=== PATIENT | female | born 1960 | race Two or more races ===

== ENCOUNTER → 2021-08-30 12:48 | Outpatient (BNVA) | payer MEDICAID, SELFPAY | PROVIDERS: PCP Internal Medicine; Visit Provider Nurse Practitioner Family | DX: G47.9 Sleep disorder, unspecified (principal); R25.1 Tremor, unspecified | CPT/HCPCS: 99212 ==

== ENCOUNTER → 2022-02-13 13:17 | Outpatient (BNVA) | payer MEDICAID, SELFPAY | PROVIDERS: PCP Internal Medicine; Visit Provider Nurse Practitioner Family | DX: R25.1 Tremor, unspecified (principal); R56.9 Unspecified convulsions; G47.33 Obstructive sleep apnea (adult) (pediatric); H93.19 Tinnitus, unspecified ear; Z79.899 Other long term (current) drug therapy | CPT/HCPCS: 99212 ==

== ENCOUNTER → 2022-08-14 12:53 | Outpatient (BNVA) | payer MEDICAID, SELFPAY | PROVIDERS: PCP Internal Medicine; Visit Provider Nurse Practitioner Family | DX: G47.33 Obstructive sleep apnea (adult) (pediatric) (principal); R25.1 Tremor, unspecified; R56.9 Unspecified convulsions; Z99.89 Dependence on other enabling machines and devices | CPT/HCPCS: 99212 ==

== ENCOUNTER 2023-02-12 12:47 | Outpatient (AMB) | payer OTHER, SELFPAY ==
[2023-02-12 12:49] VITALS: BP 122/80; PULSE 72; O2SAT 97; BMI 31.2
--- NOTE | 2023-02-12 12:49 | MHC.OFFVIS ---
Intake Vital Signs 02/12/23 12:49 Height 5 ft 4 in Weight 182 lb BMI 31.2 BP 122/80 Blood Pressure Location Rt brachial Position Sitting Pulse 72 Pulse Source Pulse Oximeter Pulse Oximetry (%) 97 Oxygen Delivery Method Room Air Intake Visit Reasons: 6m follow up SYL - LVM Intake Note: Patient presents for 6 month follow up SYL. patient states I'm doing better better more energized. Allergies No Known Allergies Allergy (Verified 02/12/23 12:53) Medication List - Last Reconciled 02/12/23 by MICHELA Auguste acetaminophen 1,000 mg PO TID albuterol sulfate 90 mcg/actuation (ProAir HFA) 2 puffs inhalation Q4H PRN cholecalciferol (vitamin D3) (Vitamin D3) 25 mcg PO DAILY 30 days fluticasone propionate 0.05% appl topical BID ketotifen fumarate 0.025%(0.035%) 1 drp ophthalmic (eye) Q12H loratadine 10 mg PO DAILY omeprazole 20 mg PO DAILY ropinirole 0.25 mg PO BID HPI HPI Comments History of Present Illness Details 62-yr-old female presents for f/u visit, accompanied by her dtr Pt denies any significant interval medical changes. Pt reports her leg movements are better. Has not been exercising- just has not gotten back dionne the routine of exercising. Seay shave some knee pain. She is using her CPAP nightly with good effect- feels more rested, however she does still have some nocturia. Her PAP compliance report shows CPAP 7 cmH2O, average use 7 hrs 27 min, 100% usgae > 4 hrs, residual AHI 1.1/hr. No recent nocturnal tongue biting episodes. She has bothersome left ear tinnitus and left ear fullness- more so wakes up with this in the morning. States it is not a headache, but is very bothersome. She has not had audiology eval. She does have Loratadine at home- but has not been using. Headaches have been much better since starting PAP. She has a prescription acute tx at home- does not need to zack- does not recall the name. [facility] Medical History delivery delivered Unspecified convulsions Family History Paternal Grandfather Lung cancer Father Cancer Social History Alcohol intake: never Patient Tobacco Use Status: Never used Tobacco Review of Systems Const All systems reviewed & are unremarkable except as noted in HPI and below Physical Exam Vital Signs: Last Vital Signs Pulse 72 02/12/23 12:49 BP 122/80 02/12/23 12:49 Pulse Ox 97 02/12/23 12:49 Oxygen Delivery Method Room Air 02/12/23 12:49 BMI result Body Mass Index 31.2 Const General: cooperative and no acute distress Orientation/consciousness: patient oriented x3 HEENT Head: Yes normocephalic Ears: TM normal on the right and TM abnormal with fluid behind the TM on the left and diffuse Resp Effort & Inspection: normal respiratory effort and able to speak in complete sentences Neuro Other: BLE tapping at rest. Stands slowly using arms, BLE shaky, but steady gait. General: patient oriented x3 and CN's II-XI intact bilaterally Cognition (Neuro): normal cognition Motor exam (neuro): 5/5 motor strength present throughout Psych Appearance: grossly normal Mental Status: mental status grossly normal Affect: normal affect Attitude: cooperative Thought process: Normal thought process present Thought content: Normal thought content present Insight: Good insight present (Psych) Assessment & Plan Assessment & Plan (1) Tremor: Comment: BLE- worse in left. Gait diffciulties. ? severe restless leg syndrome, ? functional. Code(s): R25.1 - Tremor, unspecified (2) Tinnitus: Code(s): H93.19 - Tinnitus, unspecified ear (3) SYL (obstructive sleep apnea): Comment: severe Code(s): G47.33 - Obstructive sleep apnea (adult) (pediatric) Plan For SYL: Continue CPAP 7 cmH2O, as pt is experiencing good clinical effect May use Melatonin prn. ? For headaches: Monitor. ? For nocturnal tongue biting: Monitor Has had once tongue biting episode on CPAP, but none recently. EEG- borderline d/t relatively frequent frontal rhythmic delta complexes, which were difficult to distinguish from blink artifact. Likely benign blink artifact, no concerns for metabolic dysfunction at this time. ? For tinnitus: Will refer again to ENT. Try taking her Loratadine 10mg qhs ? For tremors: Continue Ropinirole. Hold iron, she may continue vitamin C. Orders: Referrals Ear/Nose/Throat Referral H93.19 - Tinnitus, unspecified ear, H93.8X2 - Other specified disorders of left ear Medications: Changed From cholecalciferol (vitamin D3) (Vitamin D3) 25 mcg PO DAILY To cholecalciferol (vitamin D3) (Vitamin D3) 25 mcg PO DAILY 30 days 30 tabs 6RF Coding Level of Care Code Est Pt Level 4 (70927) Diagnoses Tremor R25.1 Tinnitus H93.19 SYL (obstructive sleep apnea) G47.33
== END 2023-02-12 13:36 | disposition home or self-care (01) ==
PROVIDERS: Visit Provider Nurse Practitioner Family
DX: R25.1 Tremor, unspecified (principal); H93.19 Tinnitus, unspecified ear; G47.33 Obstructive sleep apnea (adult) (pediatric)
CPT/HCPCS: 99214

== ENCOUNTER → 2023-02-12 12:47 | Outpatient (BNVA) | payer OTHER, SELFPAY | PROVIDERS: Visit Provider Nurse Practitioner Family | DX: R25.1 Tremor, unspecified (principal); H93.19 Tinnitus, unspecified ear; G47.33 Obstructive sleep apnea (adult) (pediatric); Z79.899 Other long term (current) drug therapy; Z99.89 Dependence on other enabling machines and devices | CPT/HCPCS: 99212 ==

== ENCOUNTER 2023-11-05 13:49 | Outpatient (AMB) | payer OTHER, SELFPAY ==
--- NOTE | 2023-11-05 14:03 | MHC.OFFVIS ---
Vital Signs 11/05/23 14:05 Height 5 ft 4 in Weight 187 lb BMI 32.1 BP 110/78 Blood Pressure Location Rt brachial Position Sitting Pulse 80 Pulse Source Pulse Oximeter Pulse Oximetry (%) 95 Oxygen Delivery Method Room Air Intake Visit Reasons: 6m f/u SYL-CONF Intake Note: Patient presents for SYL tremors have stopped and patient stopped medication. Allergies No Known Allergies Allergy (Verified 11/05/23 14:06) Medication List - Last Reconciled 11/05/23 by MICHELA Auguste acetaminophen 1,000 mg PO TID albuterol sulfate 90 mcg/actuation (ProAir HFA) 2 puffs inhalation Q4H PRN cholecalciferol (vitamin D3) (Vitamin D3) 25 mcg PO DAILY 30 days fluticasone propionate 0.05% appl topical BID ketotifen fumarate 0.025%(0.035%) 1 drp ophthalmic (eye) Q12H loratadine 10 mg PO DAILY omeprazole 20 mg PO DAILY ropinirole 0.25 mg PO BID HPI Comments Details: 63-yr-old female presents for f/u visit. Pt states she has been having a new headache over the last several months. The headache is left parietal internal numbness and pain- a strange sensation- can move down into occipital region. She does have tinnitus. She denies photophobia, phonophobia, N/V w/ these headaches. Denies known triggers. The headache occurs frequently. Has Tylenol- helps some. PCP has ordered a brain MRI w/o- scheduled for Thu. This is not like her typical migraine which is a/w left eye pain and photophobia. She does have bruxism which is bothersome- does not have a mouth guard. Denies neck pain. Not sleeping well even w/ CPAP. She stopped Ropinirole about a month ago as her tremor has resolved. Denies any interval convulsions. Compliance Report Usage 10/06/2023 - 11/04/2023 Usage days 30/30 days (100%) Usage days >= 4 hours 30 days (100%) Usage days < 4 hours 0 days (0%) Average usage (days used) 7 hours 18 minutes AirSense 11 AutoSet Serial number [id number] Mode CPAP Set pressure 7 cmH2O EPR Fulltime EPR level 2 Residual AHI: 0.6/hr PFS Medical History delivery delivered Unspecified convulsions Family History Paternal Grandfather Lung cancer Father Cancer Social History Alcohol intake: never Patient Tobacco Use Status: Never used Tobacco Physical Exam Vital Signs: Last Vital Signs Pulse 80 11/05/23 14:05 BP 110/78 11/05/23 14:05 Pulse Ox 95 11/05/23 14:05 Oxygen Delivery Method Room Air 11/05/23 14:05 BMI result Body Mass Index 32.1 Const General: cooperative and no acute distress Orientation/consciousness: patient oriented x3 Resp Effort & Inspection: normal respiratory effort and able to speak in complete sentences Neuro Other: No palpable scalp tenderness. Bilateral posterior cervical tightness. Limited cervical ROM. Negative Spurling. Lower frontal tooth wearing. No tremor observed. Stands easily today w/o tremor, steady gait w/o device. General: patient oriented x3 Cranial nerves: Yes CN's II-XII intact bilaterally Cognition (Neuro): normal cognition Psych Appearance: grossly normal Mental Status: mental status grossly normal Speech and movement: Normal speech and movement present Affect: normal affect Attitude: cooperative Assessment & Plan Assessment & Plan (1) Left-sided headache: Code(s): R51.9 - Headache, unspecified Category: Medical (2) Bruxism: Code(s): F45.8 - Other somatoform disorders Category: Medical (3) Cervical paraspinal muscle spasm: Code(s): M62.838 - Other muscle spasm Category: Medical (4) SYL (obstructive sleep apnea): Comment: severe Code(s): G47.33 - Obstructive sleep apnea (adult) (pediatric) Category: Medical (5) Unspecified convulsions: Comment: Episode in Mar 2017 & May 2018 & Spring 2019- stephen, LOC. ? pseudoseizure, ? convulsion, cardiac work-up initially benign, EEG- normal-low amplitude. Chronic episodes of nocturnal tongue biting. F/u 5 day video EEG- NL. Code(s): R56.9 - Unspecified convulsions Category: Medical Plan For new left sided headaches: Brain MRI as ordered by PCP- will request report next week once completed. Trial OTC mouth guard PT eval & tx for dry needling, myofascial release, posture tx- order given to pt. Resume Magnesium- pt has OTC supplement at home- goal 400-500mg qhs. For SYL: Continue CPAP 7 cmH2O, as pt is having good clinical reduction in AHI. May use Melatonin prn. ? For nocturnal tongue biting: Monitor Has had once tongue biting episode on CPAP, but none recently. EEG- borderline d/t relatively frequent frontal rhythmic delta complexes, which were difficult to distinguish from blink artifact. Likely benign blink artifact, no concerns for metabolic dysfunction at this time. ? For tinnitus: ? status of ENT referal. Loratadine 10mg qhs ? For tremors: May hold Ropinirole as tremor and gait significantly improved. Previously stopped iron. May continue vitamin C. Orders: Orders PT Evaluation and Treatment Today F45.8 - Other somatoform disorders, M62.838 - Other muscle spasm, R51.9 - Headache, unspecified Coding Level of Care Code Est Pt Level 4 (35379) Diagnoses Left-sided headache R51.9 Bruxism F45.8 Cervical paraspinal muscle spasm M62.838 SYL (obstructive sleep apnea) G47.33 Unspecified convulsions R56.9
[2023-11-05 14:05] VITALS: BP 110/78; PULSE 80; O2SAT 95; BMI 32.1
== END 2023-11-05 15:00 | disposition home or self-care (01) ==
PROVIDERS: PCP Internal Medicine; Visit Provider Nurse Practitioner Family
DX: R51.9 Headache, unspecified (principal); F45.8 Other somatoform disorders; M62.838 Other muscle spasm; G47.33 Obstructive sleep apnea (adult) (pediatric); R56.9 Unspecified convulsions
CPT/HCPCS: 99214

== ENCOUNTER → 2023-11-05 13:49 | Outpatient (BNVA) | payer OTHER, SELFPAY | PROVIDERS: PCP Internal Medicine; Visit Provider Nurse Practitioner Family | DX: G47.33 Obstructive sleep apnea (adult) (pediatric) (principal); M62.838 Other muscle spasm; R56.9 Unspecified convulsions; F45.8 Other somatoform disorders; R51.9 Headache, unspecified | CPT/HCPCS: 99212 ==

== ENCOUNTER 2025-04-19 14:29 | Outpatient (AMB) | payer OTHER, SELFPAY ==
[2025-04-19 15:00] VITALS: BP 118/78; PULSE 71; O2SAT 97; BMI 32.4
--- NOTE | 2025-04-19 15:00 | MHC.OFFVIS ---
Vital Signs 04/19/25 15:00 Height 5 ft 4 in Weight 189 lb BMI 32.4 BP 118/78 Blood Pressure Location Lt brachial Position Standing Pulse 71 Pulse Source Pulse Oximeter Pulse Oximetry (%) 97 Oxygen Delivery Method Room Air Intake Visit Reasons: 7 month F/U Intake Note: Patient presents for SYL tremors have stopped and patient stopped medication. Stereotype Finisher Required: No Accompanied by: Daughter Allergies No Known Allergies Allergy (Verified 04/19/25 15:04) Medication List - Last Reconciled 04/19/25 by MICHELA Auguste acetaminophen 1,000 mg PO TID albuterol sulfate 90 mcg/actuation (ProAir HFA) 2 puffs inhalation Q4H PRN cholecalciferol (vitamin D3) (Vitamin D3) 25 mcg PO DAILY 30 days fluticasone propionate 0.05% appl topical BID ketotifen fumarate 0.025%(0.035%) 1 drp ophthalmic (eye) Q12H loratadine 10 mg PO DAILY omeprazole 20 mg PO DAILY ropinirole 0.25 mg PO BID HPI Comments Details: 04/19/2025, HPI: 64-yr-old female presents for follow-up of tremor, convulsions, headache and sleep difficulties. Patient is accompanied by her daughter. The patient denies any significant interval medical changes. She reports overall she feels pretty good. Patient reports that the previously reported headache has resolved. She states she does not sleep well, however is consistently using her CPAP for almost 8 hours per night. Denies any interval episodes of nocturnal tongue biting. Her 90 day CPAP compliance report shows near 100% use, with a residual AHI under 2. She does continue to see [facility] sleep Medicine as well. She denies any concerns related to her mood. She denies any interval tremor. She continues to walk without a walker without difficulty. She acknowledges that she has not sizing regularly. She denies any interval convulsive activity. 11/05/2023, HPI: Pt states she has been having a new headache over the last several months. The headache is left parietal internal numbness and pain- a strange sensation- can move down into occipital region. She does have tinnitus. She denies photophobia, phonophobia, N/V w/ these headaches. Denies known triggers. The headache occurs frequently. Has Tylenol- helps some. PCP has ordered a brain MRI w/o- scheduled for Thu. This is not like her typical migraine which is a/w left eye pain and photophobia. She does have bruxism which is bothersome- does not have a mouth guard. Denies neck pain. Not sleeping well even w/ CPAP. She stopped Ropinirole about a month ago as her tremor has resolved. Denies any interval convulsions. Compliance Report Usage 10/06/2023 - 11/04/2023 Usage days 30/30 days (100%) Usage days >= 4 hours 30 days (100%) Usage days < 4 hours 0 days (0%) Average usage (days used) 7 hours 18 minutes AirSense 11 AutoSet Serial number [id number] Mode CPAP Set pressure 7 cmH2O EPR Fulltime EPR level 2 Residual AHI: 0.6/hr PFS Medical History delivery delivered Unspecified convulsions Family History Paternal Grandfather Lung cancer Father Cancer Social History Alcohol intake: never Patient Tobacco Use Status: Never used Tobacco Physical Exam Vital Signs: Last Vital Signs Pulse 71 04/19/25 15:00 BP 118/78 04/19/25 15:00 Pulse Ox 97 04/19/25 15:00 Oxygen Delivery Method Room Air 04/19/25 15:00 BMI result Body Mass Index 32.4 Const General: cooperative and no acute distress Orientation/consciousness: patient oriented x3 Resp Effort & Inspection: normal respiratory effort and able to speak in complete sentences Neuro Other: No rest or postural tremor observed. Stands easily today w/o tremor, good stride, steady gait without assistive device. General: patient oriented x3 Cranial nerves: Yes CN's II-XII intact bilaterally Cognition (Neuro): normal cognition Psych Appearance: grossly normal Mental Status: mental status grossly normal Speech and movement: Normal speech and movement present Affect: normal affect Attitude: cooperative Results Reviewed Results Reviewed: Assessment & Plan Assessment & Plan (1) Left-sided headache: Code(s): R51.9 - Headache, unspecified Category: Medical (2) Bruxism: Code(s): F45.8 - Other somatoform disorders Category: Medical (3) Cervical paraspinal muscle spasm: Code(s): M62.838 - Other muscle spasm Category: Medical (4) SYL (obstructive sleep apnea): Comment: severe Code(s): G47.33 - Obstructive sleep apnea (adult) (pediatric) Category: Medical (5) Unspecified convulsions: Comment: Episode in Mar 2017 & May 2018 & Spring 2019- shaky, LOC. ? pseudoseizure, ? convulsion, cardiac work-up initially benign, EEG- normal-low amplitude. Chronic episodes of nocturnal tongue biting. F/u 5 day video EEG- NL. Code(s): R56.9 - Unspecified convulsions Category: Medical Qualifiers: Convulsion type: unspecified Qualified Code(s): R56.9 - Unspecified convulsions Plan For previous new onset left sided headaches: October 2023 Brain MRI w/o: Mild chronic microangiopathic changes, otherwise unremarkable. Headache has resolved, however if it reoccurs: Trial OTC mouth guard Refer for PT eval & tx for dry needling, myofascial release, posture tx- order given to pt. Magnesium- pt has OTC supplement at home- goal 400-500mg qhs. For SYL: Continue CPAP 7 cmH2O, as pt is having good clinical reduction in AHI. May use Melatonin prn. Follow-up with [facility] sleep Medicine as scheduled ? For nocturnal tongue biting: Monitor Has had once tongue biting episode on CPAP, however has not had an episode in greater than a year. EEG- borderline d/t relatively frequent frontal rhythmic delta complexes, which were difficult to distinguish from blink artifact. Likely benign blink artifact, no concerns for metabolic dysfunction at this time. ? For tinnitus: ENT as scheduled Loratadine 10mg qhs ? For tremors: Tremor and gait have significantly improved. Previous trials: Iron with vitamin-C and ropinirole- discontinued when tremor resolved Pt to follow-up in 12 months or sooner prn. Coding Level of Care Code Est Pt Level 3 (56021) Diagnoses Left-sided headache R51.9 Bruxism F45.8 Cervical paraspinal muscle spasm M62.838 SYL (obstructive sleep apnea) G47.33 Convulsions, unspecified convulsion type R56.9 Convulsion type: unspecified
--- OUTSIDE RECORDS SUMMARY | 2025-04-19 18:52 | XMS_ITS | Data Portability ---
Author Organization [place] [facility], Allergy Address [address] [place] [address] Care Team Providers Care Mds Manager Name Role Phone MOJGAN FRANKLIN Referring Provider [phone] Assessment No assessment recorded. Plan of Treatment Reminders Order Date Submit Date Provider Last Modified By Organization Details Last Modified Time Details Appointments None recorded. Lab None recorded. Referral None recorded. Procedures None recorded. Surgeries None recorded. Imaging MRI, brain + internal auditory canal, w/wo contrast - MRI, BRAIN + INTERNAL AUDITORY CANAL, W/WO CONTRAST, evaluate for acoustic neuroma given left tinnitus and asymmetric hearing loss 2024 025 [email or web address] [facility] ([facility]), [address], [place], [address], 11:24:02 Medication Orders None recorded. Patient TargetsNo targets recorded. Patient InstructionsNo instructions recorded. Reason for Referral None Reported. Results Created Date Observation Date Name Description Value Unit Range Abnormal Flag Note LastModifiedBy Organization Detail LastModifiedTime 02/09/20 24 audio gram No observ ation record ed. BARCODE Not Available 2023 09:20:45 02/16/20 25 audio gram No observ ation record ed. BARCODE Not Available 2024 15:42:57 03/08/20 25 03/07/2025 MRI, brain + brain stem, w/wo contr ast [facility] Access ion Number : [id number] Moustapha parker Name: Amparo Greenberg ia l Record Number : [id number] Date of : 1960 Date of Exam: 2024 Referr ing Physic reinaldo: Eppste iner, Jeb [facility] [place] [address] [facility] [place] [address] Exam: MR Brain (C-/C+ ) CPT 43091 Room Descri ption: [facility] 3.0T MRI Brain W+W/O Contra st INDICA TION / CLINIC AL QUESTI ON: H93.12 - Tinnit us, left ear, evalua te for acoust ic neurom a given left tinnit us and asymme tric hearin g loss TECHNI QUE: MRI of the brain with attent ion to the improvement intern al audito ry canals was perfor med with and withou t contra st utiliz ing sagitt al T1, axial T2, axial FLAIR, axial 3D T2 CUBE, axial and arteaga l T1, and post-c ontras t axial and arteaga l T1-lexie ghted sequen albino. 8 mL of Elucir em was admini stered intrav enousl y. COMPAR LEANNE: Multip le priors , most recent from 024. FINDIN GS: IAC: There is no mass or abnorm al enhanc ement in the improvement intern al audito ry canals or cerebe llopon estephania angles . Course and calibe r of the 7th and 8th crania l nerves is normal bilate rally. Fluid signal is preser melvin in the inner ear struct ures bilate rally. Brains tem demons trates normal signal . Partia lly empty sella. BRAIN and EXTRA- AXIAL SPACES : No signif icant abnorm ality of the visual ized portio ns of the brain and extra- axial spaces . Mild scatte red subcor tical foci of T2 prolon gation in the suprat entori al white matter . Unchan ged nonenh ancing T2 hypoin tense focus in the right lower fadumo, corres pondin g to the known site of chroni c microh emorrh age. EXTRAC RANIAL SOFT TISSUE S: Visual ized portio ns of the extrac ranial soft tissue s are unrema rkable . BONES: Visual ized marrow signal is preser melvin. IMPRES ALEJO: No retroc ochlea r abnorm ality to explai n the patien t?s sympto ms. Mild scatte red T2/FLA IR hyperi ntense foci in the white matter , nonspe cific but most likely repres enting chroni c small vessel diseas e. I have person ally review ed the images and I agree with this report . WSN: [id number] Orderi ng Physic reinaldo: Jeb Puckett onical ly Signed By: Piper pires [facility] ([facility]) [address] [place], [address], 03/10/2025 08:37:51 Result Notes Documentation Provider Name and Address Organization Details Recorded Time Mri, Brain + Brain Stem, W/wo Contrast : [facility] Accession Number: [id number] Patient Name: Amparo Claudio Date of : 1960 Date of Exam: 03-07-2025 Referring Physician: Jeb Gibbs [facility] [address] [facility] [address] [place] [address] Exam: MR Brain (C-/C+) CPT 14395 Room Description: [facility] 3.0T MRI Brain W+W/O Contrast INDICATION / CLINICAL QUESTION: H93.12 - Tinnitus, left ear, evaluate for acoustic neuroma given left tinnitus and asymmetric hearing loss TECHNIQUE: MRI of the brain with attention to the internal auditory canals was performed with and without contrast utilizing sagittal T1, axial T2, axial FLAIR, axial 3D T2 CUBE, axial and coronal T1, and post-contrast axial and coronal T1-weighted sequences. 8 mL of Elucirem was administered intravenously. COMPARISON: Multiple priors, most recent from 11/09/2023. FINDINGS: IAC: There is no mass or abnormal enhancement in the internal auditory canals or cerebellopontine angles. Course and caliber of the 7th and 8th cranial nerves is normal bilaterally. Fluid signal is preserved in the inner ear structures bilaterally. Brainstem demonstrates normal signal. Partially empty sella. BRAIN and EXTRA-AXIAL SPACES: No significant abnormality of the visualized portions of the brain and extra-axial spaces. Mild scattered subcortical foci of T2 prolongation in the supratentorial white matter. Unchanged nonenhancing T2 hypointense focus in the right lower fadumo, corresponding to the known site of chronic microhemorrhage. EXTRACRANIAL SOFT TISSUES: Visualized portions of the extracranial soft tissues are unremarkable. BONES: Visualized marrow signal is preserved. IMPRESSION: No retrocochlear abnormality to explain the patient?s symptoms. Mild scattered T2/FLAIR hyperintense foci in the white matter, nonspecific but most likely representing chronic small vessel disease. I have personally reviewed the images and I agree with this report. WSN: [id number] Ordering Physician: Jeb Gibbs Electronically Signed By: Piper Barillas [facility] 03/10/2025 08:37:51 Problems Name Problem SNOMED Code Status Onset Date Resolution Date Notes Provider Name and Address Organization Details Recorded Time Sensorineur al hearing loss of bilateral ears 686890039 Active 2023 ALBERT HO, AUD [address] [place] [address],[address], [address], [facility] 4 11:30:48 Tinnitus of left ear 3240182472776 Active 2023 JEB Rodriguez MD [address] [place] [address], [address], [facility] 5 14:18:52 Sensorineur al hearing loss of bilateral ears 259271667 Active 2024 MARIPOSA GUADALUPE, AUD [address], [address], [facility] 13:40:12 Problem Notes None recorded. Procedures Surgical History Date Name Laterality Status Provider Name and Address Organization Details Recorded Time 5 Air & Speech Audio with Tymps - 66488, 13338 & 28947 completed MARIPOSA GUADALUPE, AUD [address] [facility],[address], [address], [facility] 02/15/2025 13:40:01 4 Comp Audio with Tymps & Reflexes - 38635 & 26028 completed ALBERT HO, AUD [address] [facility],[address], [address], [facility] 02/08/2024 11:30:34 Imaging Results None recorded. Procedure Notes None recorded. Medical Equipment None Reported. Allergies No known drug allergies Medications Name Sig Start Date Stop Date Status Note LastModified by Organization Details LastModified Time d-1000 extra strength 25 mcg (1000 ut) tabs active Not Available Not Available Not Available fluticasone propionate 0.05 % topical cream APPLY TO FACE ON FOR 2 WEEKS THEN OFF FOR 2 WEEKS active Not Available Not Available No t Available meloxicam 15 mg tablet TAKE 1 TABLET BY MOUTH EVERY DAY NEEDED FOR PAIN active Not Available Not Available No t Available acetaminoph en 500 mg tablet TAKE 2 TABLETS BY MOUTH 3 TIMES A DAY active Not Available Not Available No t Available ropinirole 0.25 mg tablet TAKE 1 TABLET BY MOUTH TWICE A DAY FOR 30 DAYS 02/15 completed Not Available Not Available Not Available metronidazo le 0.75 % topical cream APPLY A THIN LAYER TO THE FACE 1-2 TIMES DAILY NEEDED FOR FLARES. active Not Available Not Available No t Available docusate sodium 100 mg capsule TAKE 1 CAPSULE BY MOUTH 2 TIMES A DAY NEEDED FOR CONSTIPAT ION active Not Available Not Available No t Available omeprazole 20 mg capsule,del ayed release TAKE 1 CAPSULE BY MOUTH TWICE A DAY active Not Available Not Available No t Available fluticasone propionate 50 mcg/actuati on nasal spray,suspe nsion SPRAY 2 SPRAYS INTO EACH NOSTRIL EVERY DAY active Not Available Not Available No t Available doxycycline hyclate 100 mg tablet TAKE 1 TABLET BY MOUTH TWICE A DAY FOR 10 DAYS 02/07 completed Not Available Not Available Not Available Ventolin HFA 90 mcg/actuati on aerosol inhaler INHALE 2 PUFFS BY MOUTH EVERY 4 HOURS NEEDED FOR WHEEZING active Not Available Not Available No t Available Vitamin D3 25 mcg (1,000 unit) tablet TAKE 1 TABLET BY MOUTH EVERY DAY X 30 DAYS active Not Available Not Available No t Available metronidazo le 1 % topical gel TAKE 1 APPLICATI ON (TOPICAL) DAILY FOR 14 DAYS 02/15 completed Not Available Not Available Not Available levocetiriz ine 5 mg tablet TAKE 1 TABLET BY MOUTH DAILY IN PM NEEDED FOR ITCH active Not Available Not Available No t Available GaviLyte-G 236 gram-22.74 gram-6.74 gram-5.86 gram oral solution TAKE 8 OUNCE BY MOUTH DIRECTED FOLLOW PREP INSTRUCTI ONS GIVEN BY YOUR DOCTOR'S OFFICE 02/15 completed Not Available Not Available Not Available Vitals Date Recorded Body height Body mass index (BMI) Body weight Provider Name and Address Organization Details Last Updated DateTime 02/08/2024 160.02 cm 32.2 kg/m2 83431.81 g Cathleen Maurochner [place] [facility] 02/08/2024 11:42:17 Date Recorded Body height Body mass index (BMI) Body weight Provider Name and Address Organization Details Last Updated DateTime 02/15/2025 160.02 cm 31.9 kg/m2 08049.63 g SADIE JONES [place] [facility] 02/15/2025 13:46:19 Social History None recorded. Functional Status None recorded. Mental Status None recorded. Family History Nothing Reported. Medical History Condition Response Arthritis Y Migraines Y Thyroid Problems Y Asthma Y Gynecological HistoryNo gynecological history recorded. Obstetrics History GPAL:G 0 P 0 0 0 0 Past Encounters Encounter ID Performer Location Encounter Start Date Encounter Closed Date Diagnosis/Indication Diagnosis SNOMED-CT Code Diagnosis ICD10 Code Diagnosis IMO Codes Diagnosis Note [id number] JEB GIBBS MD [facility] [address] [address] 02/08/2024 11:10:32 02/08/2024 12:09:04 Sensorineural hearing loss of bilateral ears 739732811 H90.3 Audiologic al evaluation results: 02/08/2024 Right ear: Normal sloping to a mild sensorineu ral hearing loss with excellent word recognitio n. Left ear: Normal sloping to a mild sensorineu ral hearing loss with excellent word recognitio n. Tympanomet ry: Right Ear:Type A Left Ear:Type A Acoustic Reflex Testing: Signal to theRight Ear(crosse d):Normal Signal to theRight Ear(uncros sed): Normal Signal to theLeft Ear(crosse d):Normal Signal to theLeft Ear(uncros sed):Shilpa l Tinnitus of left ear 600 3246706 106 H93.12 Ear exam was normal. Audiogram was reviewed. We discussed the associatio n between sensorineu ral hearing loss and tinnitus. We discussed masking for tinnitus. Given her slight asymmetry and unilateral tinnitus I discussed the option of an MRI to exclude retrocochl ear pathology. She declined in favor of yearly audiograms . She will return in 1 year with an audio and if the asymmetry widens I will recommend an MRI. [id number] JEB GIBBS MD [facility] of [address] [place] [address] 02/15/2025 13:23:57 02/15/2025 14:22:33 Sensorineural hearing loss of bilateral ears 948969823 H90.3 [id number] Audiologic al evaluation results: 02/08/2024 ight ear:Normal sloping to a mild sensorineu ral hearing loss with excellent word recognitio n.Left ear:Normal sloping to a moderate sensorineu ral hearing loss with excellent word recognitio n. Tympanomet ry:Right Ear:Type ALeft Ear:Type A Acoustic Reflex Testing: Signal to theRight Ear(crosse d):Normal Signal to theRight Ear(uncros sed): Normal Signal to theLeft Ear(crosse d):Normal Signal to theLeft Ear(uncros sed):Shilpa l Audio today showed stable hearing with slightly worse hearing at 8K Hz in both ears. Tinnitus of left ear 656 7553257 106 H93.12 [id number] Ear exam was normal. Audiogram was reviewed. We discussed the associatio n between sensorineu ral hearing loss and tinnitus. We discussed masking for tinnitus. Given her slight asymmetry and unilateral tinnitus we will pursue an MRI to exclude retrocochl ear pathology. Health Concerns Section Related Observation LastModified by Organization Detai ls LastModified Time None Recorded Concern Status LastModified by Organization Details LastModified Time None Recorded Advance Directives Directive None Recorded Payers Insurance Date Sequence Insurance Name Policy Number Policy Cornejo Covered Member ID Cornejo Member ID Guarantor Name 02/15/2025 1 [facility] (MEDICAID REPLACEMENT - HMO) [id number] Amparo Claudio [id number] Amparo Claudio Notes Date Note Type Note Provider Name and Address Organization Details Recorded Time 02/08/2024 text/html ROS as noted in the HPI She reports left tinnitus for 8 years. It is worse at night. Audio showed mild HF SNHL AU slightly worse . She does not use masking noise. She reports she hears well but occasionally both ears feel blocked. JEB GIBBS MD [address] [place] [address],[place] [address], [place], [address], [place] [facility] 02/08/2024 12:09:52 02/15/2025 text/html ROS as noted in the HPI She reports left tinnitus for 8 years. It is worse at night. Audio today showed again mild HF SNHL AU slightly worse . JEB GIBBS MD [address] [facility],[place] [address], [place], [address], [place] [facility] 02/15/2025 14:20:35 OBGyn Episode No OBEpisode recorded.
--- OUTSIDE RECORDS SUMMARY | 2025-04-19 18:52 | XMS_ITS | Clinical Summary ---
Author Organization [facility] Address [address] [place] [address] Care Team Providers Care Wood Carving Lathe Operator Name Role Phone Lianna Nugent MD Primary Care Provider [phone] Social History Tobacco Use Types Packs/Day Years Used Date Smoking Tobacco: Never Assessed Comments Unknown Sex and Gender Information Value Date Recorded Sex Assigned at Not on file Legal Sex Female 5:45 AM EST Gender Identity Not on file Sexual Orientation Not on file Plan of Treatment Health Maintenance Due Date Last Done Comments Breast Cancer Screening 1960 Colorectal Cancer Screening: Colonoscopy 1960 DTaP,Tdap,and Td Vaccines (1 - Tdap) 1979 Pneumococcal Vaccine: 50+ Ye ars (1 of 2 - PCV) 1979 Cervical Cancer Screening: P ap Smear 1981 RSV Immunization Adult Patie nts (1 - Risk 50-74 years 1-dose series) 2010 Zoster Vaccines (1 of 2) 2010 HIV Screening 05/25/2022 Hepatitis C Screening 05/25/2022 Social Influencers of Health Screening 05/25/2022 Depression Screening 06/22/2024 COVID-19 Vaccine ( - 2023-2 5 season) 2025 Influenza Vaccine (#1) 2025 HIB Vaccines Aged Out No longer eligi ble based on patient's age to complete this topic HPV Vaccines Aged Out No longer eligi ble based on patient's age to complete this topic Hepatitis A Vaccines Aged Out No long er eligible based on patient's age to complete this topic Hepatitis B Vaccines Aged Out No long er eligible based on patient's age to complete this topic IPV Vaccines Aged Out No longer eligi ble based on patient's age to complete this topic MMR Vaccines Aged Out No longer eligi ble based on patient's age to complete this topic Meningococcal ACWY Vaccine Aged Out N o longer eligible based on patient's age to complete this topic Meningococcal B Vaccine Aged Out No l onger eligible based on patient's age to complete this topic RSV Immunization Patients Un ingris 20 months Aged Out No longer eligible b ased on patient's age to complete this topic Varicella Vaccines Aged Out No longer eligible based on patient's age to complete this topic Care Teams Wood Carving Lathe Operator Relationship Specialty Start Date End Date Lianna Nugent MD [address] [place] [address] PCP - General Internal Medicine 04/11/17
--- OUTSIDE RECORDS SUMMARY | 2025-04-19 18:52 | XMS_ITS | Clinical Summary ---
Author Organization [facility] Address [address] [place] [address] Care Team Providers Care Lockstitch Front Edge Tape Sewer Name Role Phone Lianna Nugent MD Primary Care Provider [phone] Allergies No known active allergies Medications Medication Sig Dispensed Refills Start Date End Date Status venlafaxine (EFFEXOR-XR) 37.5 MG 24 hr capsule Take 37.5 mg by mouth daily. 0 02/18/2017 Active amitriptyline (ELAVIL) tablet 25 mg Take 25 mg by mouth every night at bedtime. 0 03/25/2017 Active nabumetone (RELAFEN) 500 MG tablet Take 500 mg by mouth 2 (two) times a day. 0 Active omeprazole (PRILOSEC) 20 MG capsule Take 20 mg by mouth daily. 0 02/18/2017 Active PROAIR HFA 108 (90 BASE) MCG/ACT inhaler Inhale 2 puffs into the lungs every 4 (four) hours as needed. 0 03/02/2017 Active SYMBICORT 80-4.5 MCG/ACT inhaler Inhale 2 puffs into the lungs daily. 0 03/26/2017 Active lidocaine-prilocain e (EMLA) cream Apply topically once. 0 03/30/2017 Active clonazePAM (KLONOPIN) 1 MG tablet Take 1 tablet (1 mg total) by mouth 3 (three) times a day. 90 tablet 0 04/15/2017 Active Additional Information Patient not taking.Reported on 04/20/2018 LORazepam (ATIVAN) 1 MG tablet Take 1 mg by mouth every 6 (six) hours as needed. 0 Active docusate sodium (COLACE) 100 MG capsule Take 100 mg by mouth 2 (two) times a day. 0 Active ferrous sulfate 325 (65 FE) MG tablet Take 325 mg by mouth every morning with breakfast. 0 Active gabapentin (NEURONTIN) 300 MG capsule Take 300 mg by mouth 3 (three) times a day. 0 Active Lidocaine HCl (PREDATOR) 4 % CREA Apply topically once. 0 Active vitamin C (ASCORBIC ACID) 250 MG tablet Take 250 mg by mouth daily. 0 Active rOPINIRole (REQUIP) 0.25 MG tablet Take 0.25 mg by mouth 3 (three) times a day. 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 Hypocalcemia 04/12/2017 Anxiety 04/12/2017 Asthma 04/12/2017 Social History Tobacco Use Types Packs/Day Years Used Date Smoking Tobacco: Never Smokeless Tobacco: Never Alcohol Use Standard Drinks/Week Comments No 0 (1 standard drink = 0.6 oz pur e alcohol) Sex and Gender Information Value Date Recorded Sex Assigned at Not on file Gender Identity Not on file Sexual Orientation Not on file Last Filed Vital Signs Vital Sign Reading Time Taken Comments Blood Pressure 127/71 05/19/2018 1:41 PM EST Pulse 269 05/19/2018 1:41 PM EST Temperature 37.1 C (98.7 F) 05/19/2018 1:41 PM EST Respiratory Rate 15 04/15/2017 8:07 AM EDT Oxygen Saturation 97% 04/20/2018 1:10 PM EDT Inhaled Oxygen Concentration - - Weight 84.8 kg (187 lb) 05/19/2018 1:41 PM EST Height 161.3 cm (5' 3.5 ) 05/19/2018 1:41 PM EST Body Mass Index 32.61 05/19/2018 1:41 PM EST Plan of Treatment Health Maintenance Due Date Last Done Comments Hepatitis C Screening 1960 COVID-19 Vaccine (#1) 02[birth year]12/1961 Depression Screening 1972 Preventative Health Evaluation 1978 DTap / Tdap / Td (1 - Tdap) 1979 Cervical Cancer Screening (P ap Smear) 1981 Colon Cancer Screening (Colonoscopy) 2005 Breast Cancer Screening (Mammogram) 2010 Shingrix-Zoster Vaccine (1 of 2) 2010 Influenza Vaccine (#1) 2025 Pneumococcal Vaccine (1 of 1 - PCV) 2025 RSV Adult > 60+ Yrs or Pregn ant (1 - 1-dose 75+ series) 2035 Hepatitis B Vaccines Aged Out No long er eligible based on patient's age to complete this topic Pneumococcal Vaccine Aged Out No long er eligible based on patient's age to complete this topic RSV Ped < 20 months Aged Out No longe r eligible based on patient's age to complete this topic Advance Directives For more information, please contact: [phone] Latest Code Status on File Code Status Date Activated Date Inactivated Comments Full Code 04/12/2017 4:10 AM 04/15/2017 6:52 PM . Care Teams Lockstitch Front Edge Tape Sewer Relationship Specialty Start Date End Date Lianna Nugent MD [address] [place] [address] PCP - General Internal Medicine 04/11/17
== END 2025-04-19 15:22 | disposition home or self-care (01) ==
LOC: HO.HSMS 14:30
PROVIDERS: PCP Internal Medicine; Visit Provider Nurse Practitioner Family
DX: R51.9 Headache, unspecified (principal); F45.8 Other somatoform disorders; M62.838 Other muscle spasm; G47.33 Obstructive sleep apnea (adult) (pediatric); R56.9 Unspecified convulsions
CPT/HCPCS: 99213

== ENCOUNTER → 2025-04-19 14:29 | Outpatient (BNVA) | payer OTHER, SELFPAY | PROVIDERS: PCP Internal Medicine; Visit Provider Nurse Practitioner Family | DX: R51.9 Headache, unspecified (principal); R56.9 Unspecified convulsions; F45.8 Other somatoform disorders; M62.838 Other muscle spasm; G47.33 Obstructive sleep apnea (adult) (pediatric) | CPT/HCPCS: 99212 ==